=== PATIENT | female | born 1945 | race Hispanic/Latino ===

== ENCOUNTER 2017-02-09 15:41 | Inpatient (IN) | payer MEDICARE, OTHER ==
[2017-02-09] MEDS ORDERED: DUONEB 0.5 MG-3 MG/3 ML SOLN IH ONE ×2 (16:43→16:52)
[2017-02-09] MEDS ORDERED: ATROVENT IH ONE (17:06)
[2017-02-09] MEDS ORDERED: PROVENTIL IH ONE (17:06)
[2017-02-09] MEDS ORDERED: MAGNESIUM SULFATE 2GM/50ML 2 GM/50 ML BAG IV ONE (17:06)
[2017-02-09] MEDS ORDERED: ROCEPHIN/NS 1 GM/50 ML 1 GM/50 ML BAG IV ONE (17:06)
[2017-02-09] MEDS ORDERED: ZITHROMAX 500 MG in NACL 0.9% 250ML 250 ML IV ONE (17:07)
[2017-02-09] MEDS ORDERED: NACL 0.9% 500 ML 500 ML IV ONE (17:07)
--- NOTE | 2017-02-09 17:08 | Emergency Department Report ---
ED General Adult HPI - General Chief complaint: Dyspnea/Respdistress Stated complaint: DRS ORDERS Time Seen by Provider: 02/09/17 16:55 Source: patient, RN notes reviewed, old records reviewed Mode of arrival: Wheelchair Limitations: Physical Limitation - History of Present Illness Initial comments: Primary care Dr.: Dr. César Sanford Past medical history: COPD, on chronic home oxygen, chronic respiratory failure , hypothyroidism, stroke, atrial fibrillation, This is a 71-year-old female. She is previously unknown to me. Patient presents to the ER complaining of cough, wheezing, shortness of breath, chills. Symptoms present for the past 4-5 days. They're constant. They worse with physical exertion. It decreased with rest. Patient was seen by her primary care doctor earlier on today, had an outpatient x-ray demonstrated bilateral lower lobe pneumonia. Patient is sent to the ER for evaluation and probable admission. -: Gradual Consistency: constant Improves with: rest Worsens with: movement Associated Symptoms: cough, fever/chills, malaise, shortness of breath, weakness. denies: chest pain - Related Data Home Medications Medication Instructions Recorded Confirmed Last Taken ALBUTEROL NEB's [Proventil] 2.5 mg IH QID PRN 02/09/17 02/09/17 Unknown Amiodarone [Cordarone 200 MG TAB] 200 mg PO DAILY 02/09/17 02/09/17 Unknown Carbidopa/Levodopa 25-100 [Sinemet] 1 each PO TID 02/09/17 02/09/17 Unknown amLODIPine [Norvasc] 10 mg PO DAILY 02/09/17 02/09/17 Unknown Previous Rx's Medication Instructions Recorded Last Taken Type Donepezil [Aricept] 5 mg PO QHS #30 tablet 04/21/16 Unknown Rx Levothyroxine [Synthroid] 150 mcg PO QAM #30 tablet 04/21/16 Unknown Rx QUEtiapine [SEROquel] 25 mg PO BID #60 tablet 04/21/16 Unknown Rx Sertraline [Zoloft] 50 mg PO QDAY #30 tablet 04/21/16 Unknown Rx rOPINIRole [Requip] 1 mg PO QHS #30 tablet 04/21/16 Unknown Rx Allergies Allergy/AdvReac Type Severity Reaction Status Date / Time Sulfa (Sulfonamide Allergy Rash Verified 08/14/14 20:17 Antibiotics) ED Review of Systems ROS: Stated complaint: DRS ORDERS Other details as noted in HPI Constitutional: fever, malaise, weakness Eyes: denies: vision change ENT: denies: epistaxis Respiratory: cough, shortness of breath, SOB with exertion, SOB at rest, wheezing Cardiovascular: dyspnea on exertion Gastrointestinal: denies: vomiting Genitourinary: as per HPI Musculoskeletal: denies: arthralgia Skin: denies: lesions Neurological: weakness ED Past Medical Hx - Past Medical History Previous Medical History?: Yes Hx Hypertension: No Hx CVA: Yes (TIA 3) Hx Heart Attack/AMI: No Hx Congestive Heart Failure: Yes Hx Diabetes: No Hx Deep Vein Thrombosis: No Hx Pulmonary Embolism: No Hx GERD: No Hx Liver Disease: No Hx Renal Disease: No Hx Sickle Cell Disease: No Hx Arthritis: No Hx Headaches / Migraines: No Hx Seizures: No Hx Kidney Stones: No Hx Psychiatric Treatment: No Hx Asthma: No Hx COPD: Yes Hx Tuberculosis: No Hx Dementia: Yes Hx HIV: No Additional medical history: Atrial fibrillation (was taken off of anticoagulation secondary to GI bleeds in the past). TIA. Aortic Stenosis - Surgical History Past Surgical History?: Yes Hx Coronary Stent: No Hx Open Heart Surgery: No Hx Pacemaker: No Hx Internal Defibrillator: No Hx Cholecystectomy: No Hx Appendectomy: No Hx Breast Surgery: No Additional Surgical History: Cardiac cath - Social History Smoking Status: Never Smoker Substance Use Type: None - Medications Home Medications: Home Medications Medication Instructions Recorded Confirmed Last Taken Type Donepezil [Aricept] 5 mg PO QHS #30 tablet 04/21/16 02/09/17 Unknown Rx Levothyroxine [Synthroid] 150 mcg PO QAM #30 tablet 04/21/16 02/09/17 Unknown Rx QUEtiapine [SEROquel] 25 mg PO BID #60 tablet 04/21/16 02/09/17 Unknown Rx Sertraline [Zoloft] 50 mg PO QDAY #30 tablet 04/21/16 02/09/17 Unknown Rx rOPINIRole [Requip] 1 mg PO QHS #30 tablet 04/21/16 02/09/17 Unknown Rx ALBUTEROL NEB's [Proventil] 2.5 mg IH QID PRN 02/09/17 02/09/17 Unknown History Amiodarone [Cordarone 200 MG TAB] 200 mg PO DAILY 02/09/17 02/09/17 Unknown History Carbidopa/Levodopa 25-100 [Sinemet] 1 each PO TID 02/09/17 02/09/17 Unknown History amLODIPine [Norvasc] 10 mg PO DAILY 02/09/17 02/09/17 Unknown History ED Physical Exam - General General appearance: obese - Head Head exam: Present: atraumatic, normocephalic - Eye Eye exam: Present: normal appearance, EOMI. Absent: nystagmus - ENT ENT exam: Present: normal exam, normal orophraynx, mucous membranes moist, normal external ear exam - Neck Neck exam: Present: normal inspection, full ROM. Absent: tenderness, meningismus - Respiratory Respiratory exam: Present: respiratory distress, wheezes, rhonchi - Cardiovascular Cardiovascular Exam: Present: regular rate, normal rhythm, normal heart sounds. Absent: bradycardia, tachycardia, irregular rhythm, systolic murmur, diastolic murmur, rubs, gallop - GI/Abdominal GI/Abdominal exam: Present: soft, normal bowel sounds. Absent: distended, tenderness, guarding, rebound, rigid, pulsatile mass - Extremities Exam Extremities exam: Present: normal inspection, full ROM, normal capillary refill , pedal edema. Absent: joint swelling, calf tenderness - Back Exam Back exam: Present: normal inspection, full ROM. Absent: tenderness, CVA tenderness (R), CVA tenderness (L), muscle spasm, paraspinal tenderness, vertebral tenderness - Neurological Exam Neurological exam: Present: alert, other (Extraocular movements intact. Tongue midline. No facial droop. Facial sensation intact to light touch in the V1, V2 , V3 distribution bilaterally. 5 and 5 strength in 4 extremities.. Sensation is intact to light touch in 4 extremities.). Absent: motor sensory deficit - Psychiatric Psychiatric exam: Present: normal affect, normal mood - Skin Skin exam: Present: warm, dry, intact, normal color. Absent: rash ED Course Vital Signs 02/09/17 02/09/17 02/09/17 16:21 16:35 16:53 Temperature 98.1 F Pulse Rate 90 Pulse Rate [ 72 Anterior Bilateral Throughout] Respiratory 24 Rate Respiratory 25 H Rate [Anterior Bilateral Throughout] Blood Pressure 152/76 O2 Sat by Pulse 96 93 Oximetry 02/09/17 02/09/17 02/09/17 17:00 17:15 17:30 Temperature Pulse Rate 73 71 Pulse Rate [ 78 Anterior Bilateral Throughout] Respiratory 26 H 25 H Rate Respiratory 22 Rate [Anterior Bilateral Throughout] Blood Pressure 115/70 137/69 O2 Sat by Pulse 97 95 Oximetry 02/09/17 02/09/17 02/09/17 17:38 18:00 18:30 Temperature Pulse Rate 75 72 Pulse Rate [ 72 Anterior Bilateral Throughout] Respiratory 21 18 Rate Respiratory 25 H Rate [Anterior Bilateral Throughout] Blood Pressure 133/61 135/72 O2 Sat by Pulse 100 99 Oximetry - Reevaluation(s) Reevaluation #1: 02/09/17 17:13 Differential diagnosis: COPD exacerbation, pneumonia, chronic respiratory failure Assessment and plan: 71-year-old female with bilateral wheezing, known history of COPD, outpatient x-ray that demonstrates bilateral lower lobe pneumonia, with probable pneumonia and/or COPD exacerbation. Given his advanced age, multiple medical comorbidities, patient at very high risk for decompensation, is therefore not suitable for outpatient management. She will be given albuterol, Atrovent, steroids, magnesium, and treated empirically for community- acquired pneumonia with ceftriaxone and azithromycin. not a Tamiflu candidate , symptoms present for greater than 72 hours. Reevaluation #2: 02/09/17 18:54 Case is discussed with the Hospital physician, Dr. Moya, who accepts the patient to his service. ED Medical Decision Making - Lab Data Result diagrams: 02/09/17 17:32 02/09/17 17:32 Vital Signs 02/09/17 02/09/17 16:21 16:53 Temperature 98.1 F Pulse Rate 90 Pulse Rate [ 72 Anterior Bilateral Throughout] Respiratory 24 Rate Respiratory 25 H Rate [Anterior Bilateral Throughout] Blood Pressure 152/76 O2 Sat by Pulse 96 Oximetry - EKG Data 02/09/17 18:55 Ventricular paced, left axis deviation, 75 bpm, good capture, not consistent with STEMI, nonspecific changes when compared to prior EKG. - Radiology Data Radiology results: pending, image reviewed interpreted by me: xr chest show shyperinflated lungs, cardiomegaly, ? lll infiltrate Critical care attestation.: If time is entered above; I have spent that time in minutes in the direct care of this critically ill patient, excluding procedure time. ED Disposition Clinical Impression: Respiratory failure, Pneumonia, COPD with exacerbation Disposition: OP ADMITTED IP TO THIS HOSP Is pt being admited?: Yes Does the pt Need Aspirin: No Condition: Good Instructions: Chronic Obstructive Pulmonary Disease (ED), Bacterial Pneumonia ( ED)
--- NOTE | 2017-02-09 17:28 | Admit Criteria Form ---
Admission Criteria Documentation: COPD Clinical Indications for Admission to Inpatient Care (Place 'X' for any and all applicable criteria): Admission is indicated for ANY ONE of the following (1)(2)(3): [ X]I. Acute exacerbation by high-risk comorbidity (e.g., pneumonia, dysrhythmia, heart failure, pleural effusion, pneumothorax) or severe underlying COPD (e.g., steroid dependent) [X ]II. Inpatient admission required rather than observation care (see Chronic Obstructive Pulmonary Disease: Observation Care) because of ANY ONE of the following: [X ]a) New or pre-existing signs or symptoms of COPD (eg, dyspnea or Tachypnea at rest or with minimal activity) that persist despite outpatient and observation care treatment [ ]b) New-onset hypoxemia (room air SaO2 less than 90%, PO2 less than 60 mm Hg (8.0 kPa)) that persists despite outpatient and observation care treatment [ ]c) Worsening of pre-existing hypoxemia (eg, new or increased requirement for supplemental oxygen to maintain oxygenation at baseline level) that persists despite outpatient and observation care treatment, with oxygen treatment needs performable only in acute inpatient setting [ ]d) Hypercarbia (PCO2 greater than 40 mm Hg (5.3 kPa))-induced respiratory acidosis (pH less than 7.35) that persists despite outpatient and observation care treatment [ ]e) Supplemental oxygen or respiratory treatments for over 24 hours that are performable only in acute inpatient setting [ ]f) Chest tube placement with active evacuation (e.g., suction, drainage) (5) [ ]g) Other condition, treatment or monitoring requiring inpatient admission [ ]III. Planned invasive surgical or diagnostic procedures requiring acute- care hospitalization [ ]IV. Acute respiratory failure (e.g., uncompensated hypercarbia, severe hypoxemia) [ ]V. Severe comorbid condition (e.g., severe steroid myopathy, acute vertebral fracture) that has acutely worsened pulmonary function [ ]. Confusion state, lethargy, obtundation, stupor or coma Extended stay beyond goal length of stay may be needed for (31)(32): [ ]a ) Respiratory Failure. [ ]b) Severe or persisting hypoxemia or hypercarbia [ ]c) Severe or persistent dyspnea [ ]d) Comorbidities (e.g. chronic heart failure, atrial fibrillation with rapid response, pneumonia) [ ]e) Malnutrition The original [facility] content created by [facility] has been revised. The portions of the content which have been revised are identified through the use of italic text or in bold, and [facility] has neither reviewed nor approved the modified material. All other unmodified content is copyright [facility]. Please see references footnoted in the original [facility] edition 2016 Admission Criteria Met: Yes
[2017-02-09 17:55] LABS: Basophils % (Auto) 0.4 % (0.0-1.8); Eosinophils % (Auto) 0.4 % (0.0-4.3); Hematocrit 33.1 % (30.3-42.9); Hemoglobin 10.4 gm/dl (10.1-14.3); Mean Corpuscular HGB Conc 31 % (30-34); Mean Corpuscular Hemoglobin 29 pg (28-32); Mean Corpuscular Volume 91 fl (79-97); Platelet Count 134 K/mm3 (140-440); Red Blood Count 3.63 M/mm3 (3.65-5.03); Red Cell Distribution Width 17.1 % (13.2-15.2); White Blood Count 5.6 K/mm3 (4.5-11.0)
[2017-02-09 18:05] LABS: INR 1.04 (0.87-1.13)
[2017-02-09 18:12] LABS: BUN/Creatinine Ratio 23.75; Calcium 8.4 mg/dL (8.4-10.2); Chloride 95.2 mmol/L (98-107); Potassium 4.4 mmol/L (3.6-5.0)
[2017-02-09 22:50] LABS: ISTAT Base Excess 8; ISTAT HCO3 33.4; ISTAT PCO2 60.9 (35-45); ISTAT PH 7.347 (7.35-7.45); ISTAT PO2 99 (80-105); ISTAT SITE 3; ISTAT SO2 97; ISTAT TCO2 35
[2017-02-10] MEDS ORDERED: DULCOLAX PR PRN (00:17)
[2017-02-10] MEDS ORDERED: MILK OF MAGNESIA PO PRN (00:17)
[2017-02-10] MEDS ORDERED: PERCOCET 5/325 PO PRN (00:17)
[2017-02-10] MEDS ORDERED: TYLENOL PO PRN (00:17)
[2017-02-10] MEDS ORDERED: AMBIEN PO PRN (00:17)
[2017-02-10] MEDS ORDERED: ZOFRAN IV PRN (00:17)
[2017-02-10] MEDS ORDERED: DILAUDID IV PRN (00:17)
--- NOTE | 2017-02-10 00:17 | Event Note ---
Date: 02/09/17 See H/p in reports Copd exacerbation HTN Arrhythmias Hypothyroidism Parkinsonism
[2017-02-10] MEDS ORDERED: DUONEB 0.5 MG-3 MG/3 ML SOLN IH PRN (00:20)
[2017-02-10] MEDS ORDERED: PROVENTIL IH PRN (00:37)
[2017-02-10 01:20] LABS: Basophils % (Auto) 0.2 % (0.0-1.8); Hematocrit 32.8 % (30.3-42.9); Hemoglobin 10.3 gm/dl (10.1-14.3); Mean Corpuscular HGB Conc 31 % (30-34); Mean Corpuscular Hemoglobin 29 pg (28-32); Mean Corpuscular Volume 92 fl (79-97); Platelet Count 126 K/mm3 (140-440); Red Blood Count 3.56 M/mm3 (3.65-5.03); Red Cell Distribution Width 16.7 % (13.2-15.2); White Blood Count 4.6 K/mm3 (4.5-11.0)
[2017-02-10 01:28] LABS: BUN/Creatinine Ratio 25.33; Chloride 95.8 mmol/L (98-107); Potassium 4.1 mmol/L (3.6-5.0)
--- NOTE | 2017-02-10 02:35 | History and Physical Report ---
CHIEF COMPLAINT: Increasing respiratory distress for the last 4 days. HISTORY OF PRESENT ILLNESS: A 71-year-old male with history of COPD, hypertension, arrhythmia, comes in for increasing wheezing and shortness of breath for the last 4-5 days. Cough productive of mucoid purulent sputum. The patient sent by the primary care physician for possible bilateral lower lobe pneumonia. No fever, no chills. CURRENT MEDICATIONS: Albuterol inhaler 2 puffs q.i.d., amiodarone 200 daily, Sinemet 25/100 one tablet b.i.d., amlodipine 10 mg daily, levothyroxine 150 mcg daily, sertraline 50 mg p.o. daily, Requip 1 mg p.o. at bedtime, donepezil 5 mg p.o. at bedtime. PAST MEDICAL HISTORY: As mentioned, history is significant for cerebrovascular accident, congestive heart failure, COPD, arrhythmias, hypertension, dementia, atrial fibrillation, was taken off the anticoagulation secondary to GI bleeds in the past, TIA and aortic stenosis also. PAST SURGICAL HISTORY: Cardiac catheterization in the past. No defibrillator. SOCIAL HISTORY: Past smoker until recently. FAMILY HISTORY: Significant for hypertension. REVIEW OF SYSTEMS: Significant for anxiety, shortness of breath and wheezing and cough productive of mucoid yellow sputum. Otherwise, 14-point review of systems otherwise negative. PHYSICAL EXAMINATION: GENERAL: Elderly male, cooperative during examination. VITAL SIGNS: Temperature 98.1, pulse is 90, respirations 24, blood pressure 152/76, sats 93%. HEENT: Unremarkable. Pupils equal and reactive. NECK: Accessory muscles for respiration are prominent. CHEST: Bilateral inspiratory and expiratory rhonchi present. CARDIOVASCULAR: S1, S2 heard. No gallop, no murmur, no rub. Apical impulse in left fifth intercostal space and midclavicular line. ABDOMEN: Soft and benign. No hepatosplenomegaly. No guarding, no rigidity. Hernial orifices are normal. EXTREMITIES: Good pedal pulses. No pedal edema. CENTRAL NERVOUS SYSTEM: Alert and oriented x 4, nonfocal exam. LABORATORY DATA: Chest x-ray shows COPD, no infiltrates. EKG shows atrial fibrillation, nonspecific ST-T wave changes. Labs significant for white count of 5600. Chloride of 95.2, bicarbonate of 34, BUN and creatinine of 38 and 1.6, glucose of 113. ABG 7.347, pCO2 of 60.9, pO2 is 99. Bicarbonate is 33. Total CO2 is 35. ASSESSMENT AND PLAN: 1. Acute respiratory failure with hypercapnia. The patient will be continued on DuoNeb q. 6h. round the clock and q.3h. p.r.n., IV Solu-Medrol 60 mg q.8h. and IV Levaquin 750 mg q.8h. 2. Arrhythmias. Continue amiodarone 200 mg daily. 3. Hypertension. Continue amlodipine 10 mg daily. 4. Severe parkinsonism. Continue Sinemet 25/100 one tablet t.i.d. 5. Hypothyroidism. Continue levothyroxine 150 mcg daily. Check TSH. 6. Depression/bipolar disorder. Continue Seroquel 25 mg twice a day and sertraline once a day 7. Dementia. Continue Aricept 5 mg daily. 8. Deep venous thrombosis prophylaxis, Lovenox 40 mg subcutaneous daily. JOB# [id number] [facility]
[2017-02-10] MEDS: DUONEB 0.5 MG-3 MG/3 ML SOLN IH SCH ×4 (03:19→21:09)
[2017-02-10] MEDS: SYNTHROID PO SCH (05:27)
--- NOTE | 2017-02-10 07:37 | XRay Report ---
Portable chest: PNA The heart is being is mild vascular congestion with slight increased interstitial markings. No focal infiltrate. No effusion. Bipolar pacemaker with intact wires. The findings appear unchanged compared to April 19, 2016. Impressions: Chronic cardiac and lung disease. No acute findings noted.
[2017-02-10] MEDS ORDERED: LEVAQUIN 750MG/150ML 750 MG/150 ML BAG IV SCH (10:00)
[2017-02-10] MEDS: SINEMET PO SCH ×3 (10:00→21:30)
[2017-02-10] MEDS: LEVAQUIN 750MG/150ML 750 MG/150 ML BAG IV SCH (10:04)
[2017-02-10] MEDS: NORVASC PO SCH (11:02)
[2017-02-10] MEDS: CORDARONE PO SCH (11:02)
[2017-02-10] MEDS: ZOLOFT PO SCH (11:02)
[2017-02-10] MEDS ORDERED: PNEUMOVAX 23 IM ONE (12:00)
[2017-02-10] MEDS ORDERED: FLUARIX QUAD 2016-2017(36 MOS+) IM ONE (12:00)
--- NOTE | 2017-02-10 13:51 | Progress Note ---
Assessment and Plan Assessment and plan: Acute reparatory failure with hypercapnia COPD exacerbation Arrhythmia HTN Parkinsonism Hypothyroidism Depression/ Bipolar disorder - solumedrol, O2 support, breathing treatment, Levaquin - Continue home medications Disposition - Likely will be discharged tomorrow History Interval history: Patient was seen and evaluated this morning. Shortness of breath is getting better but still winded. Hospitalist Physical - Physical exam Narrative exam: In moderate cardiopulmonary distress. The patient appeared well nourished and normally developed. Vital signs as documented. Head exam is unremarkable. No scleral icterus . Neck is without jugular venous distension, thyromegaly, or carotid bruits. Lungs wheezing all over the chest, decrease air entry. Cardiac exam reveals regular rate and Rhythm. First and second heart sounds normal. No murmurs, rubs or gallops. Abdominal exam reveals normal bowel sounds, no masses, no organomegaly and no aortic enlargement. Extremities are nonedematous and both femoral and pedal pulses are normal. 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 No focal weakness. - Constitutional Vitals: Temp Pulse Resp BP Pulse Ox 98.5 F 72 20 171/70 97 02/10/17 13:06 02/10/17 13:06 02/10/17 13:06 02/10/17 13:06 02/10/17 13:06 Results - Labs CBC & Chem 7: 02/10/17 00:37 02/10/17 00:37 Labs: Laboratory Last Values WBC 4.6 K/mm3 (4.5-11.0) 02/10/17 00:37 RBC 3.56 M/mm3 (3.65-5.03) L 02/10/17 00:37 Hgb 10.3 gm/dl (10.1-14.3) 02/10/17 00:37 Hct 32.8 % (30.3-42.9) 02/10/17 00:37 MCV 92 fl (79-97) 02/10/17 00:37 MCH 29 pg (28-32) 02/10/17 00:37 MCHC 31 % (30-34) 02/10/17 00:37 RDW 16.7 % (13.2-15.2) H 02/10/17 00:37 Plt Count 126 K/mm3 (140-440) L 02/10/17 00:37 Lymph % (Auto) 10.9 % (13.4-35.0) L 02/10/17 00:37 Glenn % (Auto) 2.9 % (0.0-7.3) 02/10/17 00:37 Eos % (Auto) 0.0 % (0.0-4.3) 02/10/17 00:37 Baso % (Auto) 0.2 % (0.0-1.8) 02/10/17 00:37 Lymph # 0.5 K/mm3 (1.2-5.4) L 02/10/17 00:37 Glenn # 0.1 K/mm3 (0.0-0.8) 02/10/17 00:37 Eos # 0.0 K/mm3 (0.0-0.4) 02/10/17 00:37 Baso # 0.0 K/mm3 (0.0-0.1) 02/10/17 00:37 Seg Neutrophils % 86.0 % (40.0-70.0) H 02/10/17 00:37 Seg Neutrophils # 3.9 K/mm3 (1.8-7.7) 02/10/17 00:37 PT 13.5 Sec. (12.2-14.9) 02/09/17 17:32 INR 1.04 (0.87-1.13) 02/09/17 17:32 POC ABG pH 7.347 (7.35-7.45) L 02/09/17 22:41 POC ABG pCO2 60.9 (35-45) H 02/09/17 22:41 POC ABG pO2 99 (80-105) 02/09/17 22:41 POC ABG HCO3 33.4 02/09/17 22:41 POC ABG Total CO2 35 02/09/17 22:41 POC ABG O2 Sat 97 02/09/17 22:41 POC ABG Base Excess 8 02/09/17 22:41 FiO2 35 % 02/09/17 22:41 Sodium 143 mmol/L (137-145) 02/10/17 00:37 Potassium 4.1 mmol/L (3.6-5.0) 02/10/17 00:37 Chloride 95.8 mmol/L (98-107) L 02/10/17 00:37 Carbon Dioxide 32 mmol/L (22-30) H 02/10/17 00:37 Anion Gap 19 mmol/L 02/10/17 00:37 BUN 38 mg/dL (7-17) H 02/10/17 00:37 Creatinine 1.5 mg/dL (0.7-1.2) H 02/10/17 00:37 Estimated GFR 34 ml/min 02/10/17 00:37 BUN/Creatinine Ratio 25.33 % 02/10/17 00:37 Glucose 201 mg/dL (65-100) H 02/10/17 00:37 Hemoglobin A1c 4.5 % (4-6) 02/10/17 00:37 Lactic Acid 2.0 mmol/L (0.7-2.0) 02/09/17 17:32 Calcium 8.0 mg/dL (8.4-10.2) L 02/10/17 00:37 Troponin T < 0.010 ng/mL (0.00-0.029) 02/09/17 17:32
--- NOTE | 2017-02-10 19:27 | Event Note ---
Date: 02/10/17 dR. ROJAS THANK YOU FOR ASKING US TO PARTICIPATE IN THE CARE OF THIS PATIENT. THIS IIS 71 YEAR OLD FEMALE WITH HISTORY OF COPD ON HOME O2, CHRONIC RESPIRATORY FAILURE,HYPOTHYROIDISM,STROKE ,CHF,ATRIAL FIBRILLATION ADMITTED WITH SHORTNESS OF BREATH,WHEEZING,COUGH.COUGH IS NON PRODUCTIVE.PATIENT HAS HISTORY OF SMOKING IN THE PAST. 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 ALLERGIC TO SULFA DRUGS. IMMPRESSION: 1. EXACERBATION OF COPD 2. ACUTE ON CHRONIC RESPIRATORY FAILURE 3. ACUTE BRONCHITIS 4. CARDIOMEGALY, CHF 5. ATRIAL FIBRILLATION 6. H/O CVA. 7. HYPOTHYROIDISM 8 CKD PLAN; 1. O2 SUPPLEMENTATION 2 LITRES VIA NASAL CANULA. 2. ALBUTEROL/ATROVENT AEROSOL TREATMENTS Q 6 HOURS. 3. CONTINUE I/V SOLUMEDRAL. 4. CONTINUE I/V LEVAQUINE. 5. RECOMMEND LOVENOX 30 MG S/C QD.
[2017-02-10] MEDS: ROBITUSSIN PO PRN (20:02)
[2017-02-10] MEDS: ARICEPT PO SCH (21:30)
[2017-02-10] MEDS: REQUIP PO SCH (21:30)
[2017-02-11] MEDS: DUONEB 0.5 MG-3 MG/3 ML SOLN IH SCH ×4 (02:09→20:16)
[2017-02-11] MEDS: ROBITUSSIN PO PRN ×2 (02:23→21:27)
[2017-02-11] MEDS: SYNTHROID PO SCH (06:11)
[2017-02-11 06:32] LABS: Basophils % (Auto) 0.1 % (0.0-1.8); Hematocrit 33.3 % (30.3-42.9); Hemoglobin 10.5 gm/dl (10.1-14.3); Mean Corpuscular HGB Conc 32 % (30-34); Mean Corpuscular Hemoglobin 29 pg (28-32); Mean Corpuscular Volume 93 fl (79-97); Platelet Count 145 K/mm3 (140-440); Red Blood Count 3.59 M/mm3 (3.65-5.03); Red Cell Distribution Width 16.8 % (13.2-15.2); White Blood Count 3.4 K/mm3 (4.5-11.0)
[2017-02-11 06:53] LABS: Albumin 3.8 g/dL (3.9-5); Albumin/Globulin Ratio 1.2 %; BUN/Creatinine Ratio 26.92; Bilirubin,Total 0.3 mg/dL (0.1-1.2); Calcium 8.6 mg/dL (8.4-10.2); Chloride 98.9 mmol/L (98-107); Potassium 5.4 mmol/L (3.6-5.0); Total Protein 7.1 g/dL (6.3-8.2)
[2017-02-11] MEDS: SINEMET PO SCH ×3 (08:58→21:27)
[2017-02-11] MEDS: ZOLOFT PO SCH (10:43)
[2017-02-11] MEDS: NORVASC PO SCH (10:43)
[2017-02-11] MEDS: CORDARONE PO SCH (10:43)
--- NOTE | 2017-02-11 11:07 | Progress Note ---
Assessment and Plan - Patient Problems (1) COPD with exacerbation Current Visit: Yes Status: Acute Plan to address problem: - continue bronchodilators and pulmonary toilet - consider addition of LABA & ICS - continue systemic steroids - prn BIPAP - continue empiric AB's - continue suplemental oxygen to keep O2Sats > 92% (2) Acute on chronic respiratory failure with hypoxia and hypercapnia Current Visit: No Status: Acute Plan to address problem: - as above (3) Atrial fibrillation with controlled ventricular response Current Visit: No Status: Chronic Plan to address problem: - continue amiodarone Subjective Date of service: 02/11/17 Principal diagnosis: Acute COPD exacerbation Interval history: Seen and examined at bedside; 24 hour events reviewed; nursing and respiratory care staff consulted; no adverse overnight events reported to me; resting in bed ; still SOB; denies acute chest pains; No N/V/F/C Objective Vital Signs - 12hr 02/11/17 02/11/17 02/11/17 00:00 02:11 02:34 Temperature 98.1 F Pulse Rate [ 102 H 72 Anterior Bilateral Throughout] Pulse Rate [ 73 Right] Respiratory 18 Rate Respiratory 20 20 Rate [Anterior Bilateral Throughout] Blood Pressure 148/70 [Right Arm] O2 Sat by Pulse 96 Oximetry 02/11/17 02/11/17 02/11/17 04:00 08:41 08:43 Temperature 98.4 F 97.4 F L Pulse Rate [ 86 Anterior Bilateral Throughout] Pulse Rate [ 90 73 Right] Respiratory 18 20 Rate Respiratory 18 Rate [Anterior Bilateral Throughout] Blood Pressure 121/66 136/74 [Right Arm] O2 Sat by Pulse 98 97 Oximetry 02/11/17 02/11/17 08:45 08:53 Temperature Pulse Rate [ 88 Anterior Bilateral Throughout] Pulse Rate [ Right] Respiratory Rate Respiratory 18 Rate [Anterior Bilateral Throughout] Blood Pressure [Right Arm] O2 Sat by Pulse 95 Oximetry Constitutional: alert, appears uncomfortable Eyes: non-icteric ENT: oropharynx moist Neck: supple, no lymphadenopathy Effort: mildly labored Ascultation: Bilateral: diminished breath sounds, wheezes (expiratory) Cardiovascular: regular rate and rhythm Gastrointestinal: normoactive bowel sounds, soft, non-tender, non-distended Integumentary: normal Extremities: no cyanosis, no edema, pulses normal, no ischemia or petechiae Neurologic: normal mental status, non-focal exam, pupils equal and round, motor strength normal and Psychiatric: mood appropriate, affect normal CBC and BMP: 02/13/17 05:42 02/13/17 05:42 ABG, PT/INR, D-dimer: ABG POC ABG pH 7.347 (7.35-7.45) L 02/09/17 22:41 POC ABG pCO2 60.9 (35-45) H 02/09/17 22:41 POC ABG pO2 99 (80-105) 02/09/17 22:41 POC ABG HCO3 33.4 02/09/17 22:41 POC ABG Total CO2 35 02/09/17 22:41 POC ABG O2 Sat 97 02/09/17 22:41 PT/INR, D-dimer PT 13.5 Sec. (12.2-14.9) 02/09/17 17:32 INR 1.04 (0.87-1.13) 02/09/17 17:32 Abnormal lab findings: Abnormal Labs 02/09/17 02/10/17 02/10/17 22:41 00:37 00:37 WBC RBC 3.56 L RDW 16.7 H Plt Count 126 L Lymph % (Auto) 10.9 L Lymph # 0.5 L Seg Neutrophils % 86.0 H POC ABG pH 7.347 L POC ABG pCO2 60.9 H Potassium Chloride 95.8 L Carbon Dioxide 32 H BUN 38 H Creatinine 1.5 H Glucose 201 H Calcium 8.0 L ALT Albumin 02/11/17 02/11/17 05:52 05:52 WBC 3.4 L RBC 3.59 L RDW 16.8 H Plt Count Lymph % (Auto) Lymph # 0.5 L Seg Neutrophils % 79.2 H POC ABG pH POC ABG pCO2 Potassium 5.4 H D Chloride Carbon Dioxide 34 H BUN 35 H Creatinine 1.3 H Glucose 158 H Calcium ALT 6 L Albumin 3.8 L Chest x-ray: image reviewed
[2017-02-11] MEDS ORDERED: KIONEX PO ONE (16:39)
--- NOTE | 2017-02-11 16:44 | Progress Note ---
Assessment and Plan Assessment and plan: Acute reparatory failure with hypercapnia COPD exacerbation Arrhythmia HTN Parkinsonism Hypothyroidism Depression/ Bipolar disorder MARTIN - solumedrol, O2 support, breathing treatment, Levaquin - Patient is getting better but not as expected, going to do VQ scan, follow-up with the results of VQ scan - Continue home medications Disposition - Continue inpatient care History Interval history: Patient was seen and evaluated this morning. Shortness of breath is getting better but still winded and not stable for discharge. Hospitalist Physical - Physical exam Narrative exam: In moderate cardiopulmonary distress. The patient appeared well nourished and normally developed. Vital signs as documented. Head exam is unremarkable. No scleral icterus . Neck is without jugular venous distension, thyromegaly, or carotid bruits. Lungs wheezing all over the chest, decrease air entry. Cardiac exam reveals regular rate and Rhythm. First and second heart sounds normal. No murmurs, rubs or gallops. Abdominal exam reveals normal bowel sounds, no masses, no organomegaly and no aortic enlargement. Extremities are nonedematous and both femoral and pedal pulses are normal. 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 No focal weakness. - Constitutional Vitals: Temp Pulse Resp BP Pulse Ox 97.6 F 87 18 114/36 96 02/11/17 12:00 02/11/17 14:33 02/11/17 14:33 02/11/17 12:00 02/11/17 12:00 Results - Labs CBC & Chem 7: 02/11/17 05:52 02/11/17 05:52 Labs: Laboratory Last Values WBC 3.4 K/mm3 (4.5-11.0) L 02/11/17 05:52 RBC 3.59 M/mm3 (3.65-5.03) L 02/11/17 05:52 Hgb 10.5 gm/dl (10.1-14.3) 02/11/17 05:52 Hct 33.3 % (30.3-42.9) 02/11/17 05:52 MCV 93 fl (79-97) 02/11/17 05:52 MCH 29 pg (28-32) 02/11/17 05:52 MCHC 32 % (30-34) 02/11/17 05:52 RDW 16.8 % (13.2-15.2) H 02/11/17 05:52 Plt Count 145 K/mm3 (140-440) 02/11/17 05:52 Lymph % (Auto) 13.8 % (13.4-35.0) 02/11/17 05:52 [place] % (Auto) 6.9 % (0.0-7.3) 02/11/17 05:52 Eos % (Auto) 0.0 % (0.0-4.3) 02/11/17 05:52 Baso % (Auto) 0.1 % (0.0-1.8) 02/11/17 05:52 Lymph # 0.5 K/mm3 (1.2-5.4) L 02/11/17 05:52 Mobile # 0.2 K/mm3 (0.0-0.8) 02/11/17 05:52 Eos # 0.0 K/mm3 (0.0-0.4) 02/11/17 05:52 Baso # 0.0 K/mm3 (0.0-0.1) 02/11/17 05:52 Seg Neutrophils % 79.2 % (40.0-70.0) H 02/11/17 05:52 Seg Neutrophils # 2.7 K/mm3 (1.8-7.7) 02/11/17 05:52 PT 13.5 Sec. (12.2-14.9) 02/09/17 17:32 INR 1.04 (0.87-1.13) 02/09/17 17:32 POC ABG pH 7.347 (7.35-7.45) L 02/09/17 22:41 POC ABG pCO2 60.9 (35-45) H 02/09/17 22:41 POC ABG pO2 99 (80-105) 02/09/17 22:41 POC ABG HCO3 33.4 02/09/17 22:41 POC ABG Total CO2 35 02/09/17 22:41 POC ABG O2 Sat 97 02/09/17 22:41 POC ABG Base Excess 8 02/09/17 22:41 FiO2 35 % 02/09/17 22:41 Sodium 145 mmol/L (137-145) 02/11/17 05:52 Potassium 5.4 mmol/L (3.6-5.0) H D 02/11/17 05:52 Chloride 98.9 mmol/L (98-107) 02/11/17 05:52 Carbon Dioxide 34 mmol/L (22-30) H 02/11/17 05:52 Anion Gap 18 mmol/L 02/11/17 05:52 BUN 35 mg/dL (7-17) H 02/11/17 05:52 Creatinine 1.3 mg/dL (0.7-1.2) H 02/11/17 05:52 Estimated GFR 40 ml/min 02/11/17 05:52 BUN/Creatinine Ratio 26.92 % 02/11/17 05:52 Glucose 158 mg/dL (65-100) H 02/11/17 05:52 Hemoglobin A1c 4.5 % (4-6) 02/10/17 00:37 Lactic Acid 2.0 mmol/L (0.7-2.0) 02/09/17 17:32 Calcium 8.6 mg/dL (8.4-10.2) 02/11/17 05:52 Total Bilirubin 0.3 mg/dL (0.1-1.2) 02/11/17 05:52 AST 16 units/L (5-40) 02/11/17 05:52 ALT 6 units/L (7-56) L 02/11/17 05:52 Alkaline Phosphatase 73 units/L (35-129) 02/11/17 05:52 Troponin T < 0.010 ng/mL (0.00-0.029) 02/09/17 17:32 Total Protein 7.1 g/dL (6.3-8.2) 02/11/17 05:52 Albumin 3.8 g/dL (3.9-5) L 02/11/17 05:52 Albumin/Globulin Ratio 1.2 % 02/11/17 05:52 Hyperkalemia, creatinine improved
--- NOTE | 2017-02-11 19:53 | Nuclear Medicine Report ---
FINAL REPORT EXAM: NM LUNG SCAN PERF/VENT HISTORY: COPD, SOB r/o PE TECHNIQUE: 15 mCi Xenon-133 was used for ventilation. 5 mCi of technetium 99m MAA was used for perfusion. Multiple planar images were obtained. PRIORS: Chest x-ray February 11, 2017. FINDINGS: Ventilation: Poor ventilation. Grossly uniform. Perfusion: Small subsegmental perfusion defects in both lower lungs. Prominent cardiac silhouette. IMPRESSION: Based on the PIOPED study, findings represent low probability for PE.
[2017-02-11] MEDS: ARICEPT PO SCH (21:27)
[2017-02-11] MEDS: REQUIP PO SCH (21:27)
[2017-02-12] MEDS: DUONEB 0.5 MG-3 MG/3 ML SOLN IH SCH ×4 (02:22→20:21)
[2017-02-12] MEDS: SYNTHROID PO SCH (05:24)
[2017-02-12 06:00] LABS: Basophils % (Auto) 0.2 % (0.0-1.8); Hematocrit 33.3 % (30.3-42.9); Hemoglobin 10.6 gm/dl (10.1-14.3); Mean Corpuscular HGB Conc 32 % (30-34); Mean Corpuscular Hemoglobin 29 pg (28-32); Mean Corpuscular Volume 92 fl (79-97); Platelet Count 169 K/mm3 (140-440); Red Blood Count 3.63 M/mm3 (3.65-5.03); Red Cell Distribution Width 16.9 % (13.2-15.2); White Blood Count 4.8 K/mm3 (4.5-11.0)
[2017-02-12 06:18] LABS: BUN/Creatinine Ratio 29.28; Calcium 8.4 mg/dL (8.4-10.2); Chloride 99.7 mmol/L (98-107); Potassium 4.6 mmol/L (3.6-5.0)
--- NOTE | 2017-02-12 10:06 | XRay Report ---
PORTABLE CHEST INDICATION: COPD, shortness of breath. Evaluate for pulmonary embolism. COMPARISON: 02/09/2017 FINDINGS: Portable, frontal chest radiograph again demonstrates mild to moderate cardiomegaly, aortic knob calcifications, left AICD with dual-chamber leads, EKG leads and demineralized bones with few degenerative changes. Prominent markings throughout both lungs again noted without focal consolidation, pleural effusions or CHF. CONCLUSION: No acute chest process or significant interval change, as described. Thank you for the opportunity to participate in this patient's care.
[2017-02-12] MEDS: LEVAQUIN 750MG/150ML 750 MG/150 ML BAG IV SCH (10:08)
[2017-02-12] MEDS: SINEMET PO SCH ×3 (10:09→21:23)
[2017-02-12] MEDS: NORVASC PO SCH (10:09)
[2017-02-12] MEDS: CORDARONE PO SCH (10:10)
[2017-02-12] MEDS: ZOLOFT PO SCH (10:12)
--- NOTE | 2017-02-12 11:21 | Progress Note ---
Assessment and Plan - Patient Problems (1) COPD with exacerbation Current Visit: Yes Status: Acute Plan to address problem: - continue bronchodilators and pulmonary toilet - add LABA & ICS - continue systemic steroids but taper - prn BIPAP - continue empiric AB's - continue suplemental oxygen to keep O2Sats > 92% (2) Acute on chronic respiratory failure with hypoxia and hypercapnia Current Visit: No Status: Acute Plan to address problem: - as above (3) Atrial fibrillation with controlled ventricular response Current Visit: No Status: Chronic Plan to address problem: - continue amiodarone Subjective Date of service: 02/12/17 Principal diagnosis: Acute COPD exacerbation Interval history: Seen and examined at bedside; 24 hour events reviewed; nursing and respiratory care staff consulted; no adverse overnight events reported to me; still SOB; still wheezing; no new issues otherwise Objective Vital Signs - 12hr 02/12/17 02/12/17 02/12/17 02:20 02:23 02:36 Temperature 97.6 F Pulse Rate Pulse Rate [ 70 71 Anterior Bilateral Throughout] Pulse Rate [ 77 Right] Respiratory 20 Rate Respiratory 20 20 Rate [Anterior Bilateral Throughout] Blood Pressure Blood Pressure 122/62 [Right Arm] O2 Sat by Pulse 96 Oximetry 02/12/17 02/12/17 02/12/17 07:00 08:00 10:09 Temperature 97.6 F 36.6 F L Pulse Rate 70 Pulse Rate [ Anterior Bilateral Throughout] Pulse Rate [ 69 70 Right] Respiratory 20 24 Rate Respiratory Rate [Anterior Bilateral Throughout] Blood Pressure 122/62 Blood Pressure 129/67 122/62 [Right Arm] O2 Sat by Pulse 98 98 Oximetry Constitutional: no acute distress Eyes: non-icteric ENT: oropharynx moist Neck: supple, no lymphadenopathy Effort: mildly labored Ascultation: Bilateral: diminished breath sounds, wheezes (expiratory) Cardiovascular: regular rate and rhythm Gastrointestinal: normoactive bowel sounds, soft, non-tender, non-distended Integumentary: normal Extremities: no cyanosis, no edema, pulses normal, no ischemia or petechiae Neurologic: normal mental status, non-focal exam, pupils equal and round, motor strength normal and Psychiatric: mood appropriate, affect normal CBC and BMP: 02/13/17 05:42 02/13/17 05:42 ABG, PT/INR, D-dimer: ABG POC ABG pH 7.347 (7.35-7.45) L 02/09/17 22:41 POC ABG pCO2 60.9 (35-45) H 02/09/17 22:41 POC ABG pO2 99 (80-105) 02/09/17 22:41 POC ABG HCO3 33.4 02/09/17 22:41 POC ABG Total CO2 35 02/09/17 22:41 POC ABG O2 Sat 97 02/09/17 22:41 PT/INR, D-dimer PT 13.5 Sec. (12.2-14.9) 02/09/17 17:32 INR 1.04 (0.87-1.13) 02/09/17 17:32 Abnormal lab findings: Abnormal Labs 02/09/17 02/10/17 02/10/17 22:41 00:37 00:37 WBC RBC 3.56 L RDW 16.7 H Plt Count 126 L Lymph % (Auto) 10.9 L Lymph # 0.5 L Seg Neutrophils % 86.0 H POC ABG pH 7.347 L POC ABG pCO2 60.9 H Potassium Chloride 95.8 L Carbon Dioxide 32 H BUN 38 H Creatinine 1.5 H Glucose 201 H Calcium 8.0 L ALT Albumin 02/11/17 02/11/17 02/12/17 05:52 05:52 05:35 WBC 3.4 L RBC 3.59 L 3.63 L RDW 16.8 H 16.9 H Plt Count Lymph % (Auto) 7.9 L Lymph # 0.5 L 0.4 L Seg Neutrophils % 79.2 H 89.1 H POC ABG pH POC ABG pCO2 Potassium 5.4 H D Chloride Carbon Dioxide 34 H BUN 35 H Creatinine 1.3 H Glucose 158 H Calcium ALT 6 L Albumin 3.8 L 02/12/17 05:35 WBC RBC RDW Plt Count Lymph % (Auto) Lymph # Seg Neutrophils % POC ABG pH POC ABG pCO2 Potassium Chloride Carbon Dioxide 31 H BUN 41 H Creatinine 1.4 H Glucose 142 H Calcium ALT Albumin
--- NOTE | 2017-02-12 14:51 | Progress Note ---
Assessment and Plan Assessment and plan: Acute reparatory failure with hypercapnia COPD exacerbation Arrhythmia HTN Parkinsonism Hypothyroidism Depression/ Bipolar disorder MARTIN - solumedrol, O2 support, breathing treatment, Levaquin - Patient is getting better but not as expected, VQ scan low probability for PE - Continue home medications Disposition - Continue inpatient care History Interval history: Patient was seen and evaluated this morning. Shortness of breath is getting better but still winded and not stable for discharge. Hospitalist Physical - Physical exam Narrative exam: In moderate cardiopulmonary distress. The patient appeared well nourished and normally developed. Vital signs as documented. Head exam is unremarkable. No scleral icterus . Neck is without jugular venous distension, thyromegaly, or carotid bruits. Lungs wheezing all over the chest, decrease air entry. Cardiac exam reveals regular rate and Rhythm. First and second heart sounds normal. No murmurs, rubs or gallops. Abdominal exam reveals normal bowel sounds, no masses, no organomegaly and no aortic enlargement. Extremities are nonedematous and both femoral and pedal pulses are normal. [place]: Alert and oriented 3. No focal weakness. - Constitutional Vitals: Temp Pulse Resp BP Pulse Ox 36.7 F L 83 18 119/61 98 02/12/17 12:00 02/12/17 12:00 02/12/17 12:00 02/12/17 12:00 02/12/17 12:00 Results - Labs CBC & Chem 7: 02/12/17 05:35 02/12/17 05:35 Labs: Laboratory Last Values WBC 4.8 K/mm3 (4.5-11.0) 02/12/17 05:35 RBC 3.63 M/mm3 (3.65-5.03) L 02/12/17 05:35 Hgb 10.6 gm/dl (10.1-14.3) 02/12/17 05:35 Hct 33.3 % (30.3-42.9) 02/12/17 05:35 MCV 92 fl (79-97) 02/12/17 05:35 MCH 29 pg (28-32) 02/12/17 05:35 MCHC 32 % (30-34) 02/12/17 05:35 RDW 16.9 % (13.2-15.2) H 02/12/17 05:35 Plt Count 169 K/mm3 (140-440) 02/12/17 05:35 Lymph % (Auto) 7.9 % (13.4-35.0) L 02/12/17 05:35 [place] % (Auto) 2.8 % (0.0-7.3) 02/12/17 05:35 Eos % (Auto) 0.0 % (0.0-4.3) 02/12/17 05:35 Baso % (Auto) 0.2 % (0.0-1.8) 02/12/17 05:35 Lymph # 0.4 K/mm3 (1.2-5.4) L 02/12/17 05:35 [place] # 0.1 K/mm3 (0.0-0.8) 02/12/17 05:35 Eos # 0.0 K/mm3 (0.0-0.4) 02/12/17 05:35 Baso # 0.0 K/mm3 (0.0-0.1) 02/12/17 05:35 Seg Neutrophils % 89.1 % (40.0-70.0) H 02/12/17 05:35 Seg Neutrophils # 4.2 K/mm3 (1.8-7.7) 02/12/17 05:35 PT 13.5 Sec. (12.2-14.9) 02/09/17 17:32 INR 1.04 (0.87-1.13) 02/09/17 17:32 POC ABG pH 7.347 (7.35-7.45) L 02/09/17 22:41 POC ABG pCO2 60.9 (35-45) H 02/09/17 22:41 POC ABG pO2 99 (80-105) 02/09/17 22:41 POC ABG HCO3 33.4 02/09/17 22:41 POC ABG Total CO2 35 02/09/17 22:41 POC ABG O2 Sat 97 02/09/17 22:41 POC ABG Base Excess 8 02/09/17 22:41 FiO2 35 % 02/09/17 22:41 Sodium 144 mmol/L (137-145) 02/12/17 05:35 Potassium 4.6 mmol/L (3.6-5.0) 02/12/17 05:35 Chloride 99.7 mmol/L (98-107) 02/12/17 05:35 Carbon Dioxide 31 mmol/L (22-30) H 02/12/17 05:35 Anion Gap 18 mmol/L 02/12/17 05:35 BUN 41 mg/dL (7-17) H 02/12/17 05:35 Creatinine 1.4 mg/dL (0.7-1.2) H 02/12/17 05:35 Estimated GFR 37 ml/min 02/12/17 05:35 BUN/Creatinine Ratio 29.28 % 02/12/17 05:35 Glucose 142 mg/dL (65-100) H 02/12/17 05:35 Hemoglobin A1c 4.5 % (4-6) 02/10/17 00:37 Lactic Acid 2.0 mmol/L (0.7-2.0) 02/09/17 17:32 Calcium 8.4 mg/dL (8.4-10.2) 02/12/17 05:35 Total Bilirubin 0.3 mg/dL (0.1-1.2) 02/11/17 05:52 AST 16 units/L (5-40) 02/11/17 05:52 ALT 6 units/L (7-56) L 02/11/17 05:52 Alkaline Phosphatase 73 units/L (35-129) 02/11/17 05:52 Troponin T < 0.010 ng/mL (0.00-0.029) 02/09/17 17:32 Total Protein 7.1 g/dL (6.3-8.2) 02/11/17 05:52 Albumin 3.8 g/dL (3.9-5) L 02/11/17 05:52 Albumin/Globulin Ratio 1.2 % 02/11/17 05:52 - Imaging and Cardiology Imaging and Cardiology: VQ scan negative
--- NOTE | 2017-02-12 15:50 | Consultation ---
History of Present Illness Consult date: 02/12/17 Consult reason: atrial fibrillation History of present illness: This is a 71yr old woman who is admitted with COPD exacerbation. She has a cardiac history of chronic atrial fibrillation. There is also a indwelling pacemaker in situ. Patient reports she is no longer on oral anticoagulation due to prior GI bleed while on warfarin. Patient is usually followed by [facility] and reports her Afib is management with low dose aspirin and amiodarone. She has had recent cardiac workup at [facility] including invasive cardiac evaluation April 2016, that reports normal coronaries. Her left ventricular ejection fraction was not measured at that time. Cardiac consultation requested for atrial fibrillation. Her presenting ECG ventricular paced rhythm with an underlying atrial fibrillation. At this time, she has no cardiac symptoms, no chest pain and no palpitations. Still with some shortness of breath and active wheezing. No distress noted. Medications and Allergies Allergies Allergy/AdvReac Type Severity Reaction Status Date / Time Sulfa (Sulfonamide Allergy Rash Verified 08/14/14 20:17 Antibiotics) Home Medications Medication Instructions Recorded Confirmed Last Taken Type Donepezil [Aricept] 5 mg PO QHS #30 tablet 04/21/16 02/09/17 Unknown Rx Levothyroxine [Synthroid] 150 mcg PO QAM #30 tablet 04/21/16 02/09/17 Unknown Rx QUEtiapine [SEROquel] 25 mg PO BID #60 tablet 04/21/16 02/09/17 Unknown Rx Sertraline [Zoloft] 50 mg PO QDAY #30 tablet 04/21/16 02/09/17 Unknown Rx rOPINIRole [Requip] 1 mg PO QHS #30 tablet 04/21/16 02/09/17 Unknown Rx ALBUTEROL NEB's [Proventil] 2.5 mg IH QID PRN 02/09/17 02/09/17 Unknown History Amiodarone [Cordarone 200 MG TAB] 200 mg PO DAILY 02/09/17 02/09/17 Unknown History Carbidopa/Levodopa 25-100 [Sinemet] 1 each PO TID 02/09/17 02/09/17 Unknown History amLODIPine [Norvasc] 10 mg PO DAILY 02/09/17 02/09/17 Unknown History Active Meds: Active Medications Acetaminophen (Tylenol) 650 mg PO Q4H PRN PRN Reason: Pain MILD(1-3)/Fever >100.5/POWERS Albuterol (Proventil) 2.5 mg IH Q3HRT PRN PRN Reason: Wheezing Albuterol/Ipratropium (Duoneb 0.5 Mg-3 Mg/3 Ml Soln) 1 ampul IH Q6HRT [facility] Last Admin: 02/12/17 13:59 Dose: 1 ampul Amiodarone HCl (Cordarone) 200 mg PO DAILY [facility] Last Admin: 02/12/17 10:10 Dose: 200 mg Amlodipine Besylate (Norvasc) 10 mg PO DAILY [facility] Last Admin: 02/12/17 10:09 Dose: 10 mg Bisacodyl (Dulcolax) 10 mg CO QDAY PRN PRN Reason: Constipation unrelieved by MOM Carbidopa/Levodopa (Sinemet) 1 each PO TID [facility] Last Admin: 02/12/17 10:09 Dose: 1 each Donepezil HCl (Aricept) 5 mg PO QHS [facility] Last Admin: 02/11/17 21:27 Dose: 5 mg Guaifenesin (Robitussin) 200 mg PO Q4H PRN PRN Reason: Cough Last Admin: 02/11/17 21:27 Dose: 200 mg Hydromorphone HCl (Dilaudid) 0.5 mg IV Q3H PRN PRN Reason: Pain , Severe (7-10) Levofloxacin/Dextrose (Levaquin 750mg/150ml) 750 mg in 150 mls @ 100 mls/hr IV Q48HR [facility] PRN Reason: Protocol Last Admin: 02/12/17 10:08 Dose: 100 mls/hr Levothyroxine Sodium (Synthroid) 150 mcg PO QAM@0600 [facility] Last Admin: 02/12/17 05:24 Dose: 150 mcg Magnesium Hydroxide (Milk Of Magnesia) 30 ml PO Q4H PRN PRN Reason: Constipation Methylprednisolone Sodium Succinate (Solu-Medrol) 80 mg IV Q8H [facility] Last Admin: 02/12/17 10:16 Dose: 80 mg Ondansetron HCl (Zofran) 4 mg IV Q8H PRN PRN Reason: N/V unrelieved by Reglan Oxycodone/Acetaminophen (Percocet 5/325) 1 tab PO Q6H PRN PRN Reason: Pain, Moderate (4-6) Quetiapine Fumarate (Seroquel) 25 mg PO BID [facility] Last Admin: 02/12/17 10:11 Dose: 25 mg Ropinirole HCl (Requip) 1 mg PO QHS [facility] Last Admin: 02/11/17 21:27 Dose: 1 mg Sertraline HCl (Zoloft) 50 mg PO QDAY [facility] Last Admin: 02/12/17 10:12 Dose: 50 mg Zolpidem Tartrate (Ambien) 5 mg PO QHS PRN PRN Reason: Insomnia Physical Examination Vital Signs Temp Pulse Resp BP Pulse Ox 98.1 F 90 24 152/76 96 02/09/17 16:21 02/09/17 16:21 02/09/17 16:21 02/09/17 16:21 02/09/17 16:21 General appearance: no acute distress HEENT: Positive: PERRL Neck: Positive: trachea midline Cardiac: Positive: Other (paced) Lungs: Positive: Wheezes Results 02/12/17 05:35 02/12/17 05:35 CBC 02/12/17 Range/Units 05:35 WBC 4.8 (4.5-11.0) K/mm3 RBC 3.63 L (3.65-5.03) M/mm3 Hgb 10.6 (10.1-14.3) gm/dl Hct 33.3 (30.3-42.9) % Plt Count 169 (140-440) K/mm3 Lymph # 0.4 L (1.2-5.4) K/mm3 [place] # 0.1 (0.0-0.8) K/mm3 Eos # 0.0 (0.0-0.4) K/mm3 Baso # 0.0 (0.0-0.1) K/mm3 Comprehensive Metabolic Panel 02/12/17 Range/Units 05:35 Sodium 144 (137-145) mmol/L Potassium 4.6 (3.6-5.0) mmol/L Chloride 99.7 (98-107) mmol/L Carbon Dioxide 31 H (22-30) mmol/L BUN 41 H (7-17) mg/dL Creatinine 1.4 H (0.7-1.2) mg/dL Glucose 142 H (65-100) mg/dL Calcium 8.4 (8.4-10.2) mg/dL Assessment and Plan - Patient Problems (1) Atrial fibrillation with controlled ventricular response Current Visit: No Status: Chronic Plan to address problem: patient considered no longer a candidate for oral anticoagulation due to prior GI bleed while on warfarin.
[2017-02-12] MEDS: ARICEPT PO SCH (21:23)
[2017-02-12] MEDS: REQUIP PO SCH (21:23)
[2017-02-13] MEDS: DUONEB 0.5 MG-3 MG/3 ML SOLN IH SCH ×4 (01:39→20:26)
[2017-02-13] MEDS: SYNTHROID PO SCH (06:01)
[2017-02-13 06:35] LABS: BUN/Creatinine Ratio 30.71; Calcium 8.3 mg/dL (8.4-10.2); Chloride 98.1 mmol/L (98-107); Potassium 4.3 mmol/L (3.6-5.0)
[2017-02-13 06:37] LABS: Hematocrit 33.1 % (30.3-42.9); Hemoglobin 10.6 gm/dl (10.1-14.3); Mean Corpuscular HGB Conc 32 % (30-34); Mean Corpuscular Hemoglobin 29 pg (28-32); Mean Corpuscular Volume 91 fl (79-97); Platelet Count 185 K/mm3 (140-440); Red Blood Count 3.64 M/mm3 (3.65-5.03); Red Cell Distribution Width 16.8 % (13.2-15.2); White Blood Count 5.9 K/mm3 (4.5-11.0)
[2017-02-13 07:46] LABS: Anisocytosis 1+; Basophils % (Manual) 0 % (0.0-1.8); Blastocytes % (Manual) 0 %; Diff Status Complete; Eosinophils % (Manual) 0 % (0.0-4.3); Hypochromasia 1+
[2017-02-13] MEDS: SINEMET PO SCH ×3 (08:52→21:48)
[2017-02-13] MEDS: CORDARONE PO SCH (09:01)
[2017-02-13] MEDS: NORVASC PO SCH (09:01)
[2017-02-13] MEDS: ZOLOFT PO SCH (09:02)
--- NOTE | 2017-02-13 10:42 | Progress Note ---
Assessment and Plan - Patient Problems (1) COPD with exacerbation Current Visit: Yes Status: Acute Plan to address problem: - continue bronchodilators and pulmonary toilet - added LABA & ICS - continue systemic steroids but taper - prn BIPAP - continue empiric AB's - continue suplemental oxygen to keep O2Sats > 92% (2) Acute on chronic respiratory failure with hypoxia and hypercapnia Current Visit: No Status: Acute Plan to address problem: - as above (3) Atrial fibrillation with controlled ventricular response Current Visit: No Status: Chronic Plan to address problem: - continue amiodarone - cardiology evaluation ongoing Subjective Date of service: 02/13/17 Principal diagnosis: Acute COPD exacerbation Interval history: Seen and examined at bedside; 24 hour events reviewed; nursing and respiratory care staff consulted; no adverse overnight events reported to me; no new issues respiratory-tracey; tolerating BIPAP; no emesis or overt aspiration Objective Vital Signs - 12hr 02/13/17 02/13/17 02/13/17 00:07 01:39 04:00 Temperature 97.6 F 97.3 F L Pulse Rate Pulse Rate [ 71 Anterior Bilateral Throughout] Pulse Rate [ 70 70 Right] Respiratory 20 20 Rate Respiratory 21 Rate [Anterior Bilateral Throughout] Blood Pressure Blood Pressure 131/77 124/78 [Right Arm] O2 Sat by Pulse 96 96 Oximetry 02/13/17 02/13/17 02/13/17 08:27 08:37 09:01 Temperature Pulse Rate 70 Pulse Rate [ 71 70 Anterior Bilateral Throughout] Pulse Rate [ Right] Respiratory Rate Respiratory 18 20 Rate [Anterior Bilateral Throughout] Blood Pressure 159/74 Blood Pressure [Right Arm] O2 Sat by Pulse 97 Oximetry 02/13/17 09:08 Temperature 97.9 F Pulse Rate Pulse Rate [ Anterior Bilateral Throughout] Pulse Rate [ 70 Right] Respiratory 20 Rate Respiratory Rate [Anterior Bilateral Throughout] Blood Pressure Blood Pressure 159/74 [Right Arm] O2 Sat by Pulse 97 Oximetry Constitutional: no acute distress Eyes: non-icteric ENT: oropharynx moist Neck: supple, no lymphadenopathy Effort: mildly labored Ascultation: Bilateral: diminished breath sounds, wheezes (expiratory; scant) Cardiovascular: irregular rhythm Gastrointestinal: normoactive bowel sounds, soft, non-tender, non-distended Integumentary: normal Extremities: no cyanosis, no edema, pulses normal, no ischemia or petechiae Neurologic: normal mental status, non-focal exam, pupils equal and round, motor strength normal and Psychiatric: mood appropriate, affect normal CBC and BMP: 02/14/17 05:09 02/14/17 05:09 ABG, PT/INR, D-dimer: ABG POC ABG pH 7.347 (7.35-7.45) L 02/09/17 22:41 POC ABG pCO2 60.9 (35-45) H 02/09/17 22:41 POC ABG pO2 99 (80-105) 02/09/17 22:41 POC ABG HCO3 33.4 02/09/17 22:41 POC ABG Total CO2 35 02/09/17 22:41 POC ABG O2 Sat 97 02/09/17 22:41 PT/INR, D-dimer PT 13.5 Sec. (12.2-14.9) 02/09/17 17:32 INR 1.04 (0.87-1.13) 02/09/17 17:32 Abnormal lab findings: Abnormal Labs 02/09/17 02/10/17 02/10/17 22:41 00:37 00:37 WBC RBC 3.56 L RDW 16.7 H Plt Count 126 L Lymph % (Auto) 10.9 L Lymph # 0.5 L Seg Neutrophils % 86.0 H Seg Neuts % (Manual) Lymphocytes % (Manual) Lymphocytes # (Manual) POC ABG pH 7.347 L POC ABG pCO2 60.9 H Potassium Chloride 95.8 L Carbon Dioxide 32 H BUN 38 H Creatinine 1.5 H Glucose 201 H Calcium 8.0 L ALT Albumin 02/11/17 02/11/17 02/12/17 05:52 05:52 05:35 WBC 3.4 L RBC 3.59 L 3.63 L RDW 16.8 H 16.9 H Plt Count Lymph % (Auto) 7.9 L Lymph # 0.5 L 0.4 L Seg Neutrophils % 79.2 H 89.1 H Seg Neuts % (Manual) Lymphocytes % (Manual) Lymphocytes # (Manual) POC ABG pH POC ABG pCO2 Potassium 5.4 H D Chloride Carbon Dioxide 34 H BUN 35 H Creatinine 1.3 H Glucose 158 H Calcium ALT 6 L Albumin 3.8 L 02/12/17 02/13/17 02/13/17 05:35 05:42 05:42 WBC RBC 3.64 L RDW 16.8 H Plt Count Lymph % (Auto) Lymph # Seg Neutrophils % Seg Neuts % (Manual) 89.0 H Lymphocytes % (Manual) 4.0 L Lymphocytes # (Manual) 0.2 L POC ABG pH POC ABG pCO2 Potassium Chloride Carbon Dioxide 31 H 32 H BUN 41 H 43 H Creatinine 1.4 H 1.4 H Glucose 142 H 157 H Calcium 8.3 L ALT Albumin
[2017-02-13] MEDS: PULMICORT IH SCH ×2 (12:17→20:27)
[2017-02-13] MEDS: BROVANA NEBU IH SCH ×2 (12:18→20:26)
--- NOTE | 2017-02-13 14:15 | Progress Note ---
Assessment and Plan - Patient Problems (1) Atrial fibrillation Current Visit: Yes Status: Acute Qualifiers: Atrial fibrillation type: A Plan to address problem: Atrial fibrillation is chronic, patient has been determined previously to be a high risk for oral anticoagulation therapy. We will therefore continue to optimize rate control. Increase ventricular rate at this time is likely related to COPD exacerbation and bronchodilator treatments. Subjective Date of service: 02/13/17 Principal diagnosis: Acute COPD exacerbation Interval history: Patient is comfortable, no new cardiac complaints. Objective Vital Signs Temp Pulse Pulse Pulse Resp Resp BP 02/13/17 12:00 98.0 F 73 20 02/13/17 09:08 97.9 F 70 20 02/13/17 09:01 70 159/74 02/13/17 08:37 70 20 02/13/17 08:27 71 18 02/13/17 04:00 97.3 F L 70 20 02/13/17 01:39 71 21 02/13/17 00:07 97.6 F 70 20 02/12/17 22:00 71 18 02/12/17 21:17 98.3 F 69 22 02/12/17 20:36 73 18 02/12/17 20:23 02/12/17 20:21 71 18 02/12/17 16:00 36.9 F L 73 12 BP Pulse Ox 02/13/17 12:00 141/37 96 02/13/17 09:08 159/74 97 02/13/17 09:01 02/13/17 08:37 02/13/17 08:27 97 02/13/17 04:00 124/78 96 02/13/17 01:39 02/13/17 00:07 131/77 96 02/12/17 22:00 96 02/12/17 21:17 112/54 96 02/12/17 20:36 02/12/17 20:23 97 02/12/17 20:21 02/12/17 16:00 123/63 95 - Physical Examination General: No Apparent Distress HEENT: Positive: PERRL Neck: Positive: trachea midline Cardiac: Positive: irregularly irregular Lungs: Positive: Decreased Breath Sounds Neuro: Positive: Grossly Intact Abdomen: Positive: Soft Skin: Positive: Clear Extremities: Absent: edema - Labs and Meds CBC 02/13/17 Range/Units 05:42 WBC 5.9 (4.5-11.0) K/mm3 RBC 3.64 L (3.65-5.03) M/mm3 Hgb 10.6 (10.1-14.3) gm/dl Hct 33.1 (30.3-42.9) % Plt Count 185 (140-440) K/mm3 Comprehensive Metabolic Panel 02/13/17 Range/Units 05:42 Sodium 144 (137-145) mmol/L Potassium 4.3 (3.6-5.0) mmol/L Chloride 98.1 (98-107) mmol/L Carbon Dioxide 32 H (22-30) mmol/L BUN 43 H (7-17) mg/dL Creatinine 1.4 H (0.7-1.2) mg/dL Glucose 157 H (65-100) mg/dL Calcium 8.3 L (8.4-10.2) mg/dL
[2017-02-13] MEDS ORDERED: LASIX IV ONE (16:29)
--- NOTE | 2017-02-13 16:33 | Progress Note ---
Assessment and Plan Assessment and plan: Acute reparatory failure with hypercapnia COPD exacerbation Arrhythmia HTN Parkinsonism Hypothyroidism Depression/ Bipolar disorder MARTIN - solumedrol, O2 support, breathing treatment, Levaquin, cough syrup - Patient looks volume overloaded and will give her a dose of furosemide - VQ scan low probability for PE - Continue home medications Disposition - Continue inpatient care History Interval history: Patient was seen and evaluated this morning. Shortness of breath is getting better but still she complains Cough. Hospitalist Physical - Physical exam Narrative exam: In moderate cardiopulmonary distress. The patient appeared well nourished and normally developed. Vital signs as documented. Head exam is unremarkable. No scleral icterus . Neck is without jugular venous distension, thyromegaly, or carotid bruits. Lungs scattered wheezing. Cardiac exam reveals irregularly irregular heart rate. Abdominal exam reveals normal bowel sounds, no masses, no organomegaly and no aortic enlargement. Extremities mild bilateral pedal edema. IMPOSER: Alert and oriented 3. No focal weakness. - Constitutional Vitals: Temp Pulse Resp BP Pulse Ox 98.0 F 76 18 141/37 96 02/13/17 12:00 02/13/17 12:28 02/13/17 12:28 02/13/17 12:00 02/13/17 12:00 General appearance: Present: no acute distress Results - Labs CBC & Chem 7: 02/13/17 05:42 02/13/17 05:42 Labs: Laboratory Last Values WBC 5.9 K/mm3 (4.5-11.0) 02/13/17 05:42 RBC 3.64 M/mm3 (3.65-5.03) L 02/13/17 05:42 Hgb 10.6 gm/dl (10.1-14.3) 02/13/17 05:42 Hct 33.1 % (30.3-42.9) 02/13/17 05:42 MCV 91 fl (79-97) 02/13/17 05:42 MCH 29 pg (28-32) 02/13/17 05:42 MCHC 32 % (30-34) 02/13/17 05:42 RDW 16.8 % (13.2-15.2) H 02/13/17 05:42 Plt Count 185 K/mm3 (140-440) 02/13/17 05:42 Lymph % (Auto) 7.9 % (13.4-35.0) L 02/12/17 05:35 [place] % (Auto) 2.8 % (0.0-7.3) 02/12/17 05:35 Eos % (Auto) 0.0 % (0.0-4.3) 02/12/17 05:35 Baso % (Auto) 0.2 % (0.0-1.8) 02/12/17 05:35 Lymph # 0.4 K/mm3 (1.2-5.4) L 02/12/17 05:35 [place] # 0.1 K/mm3 (0.0-0.8) 02/12/17 05:35 Eos # 0.0 K/mm3 (0.0-0.4) 02/12/17 05:35 Baso # 0.0 K/mm3 (0.0-0.1) 02/12/17 05:35 Add Manual Diff Complete 02/13/17 05:42 Total Counted 100 02/13/17 05:42 Seg Neutrophils % Health Analyst 02/13/17 05:42 Seg Neuts % (Manual) 89.0 % (40.0-70.0) H 02/13/17 05:42 Band Neutrophils % 6.0 % 02/13/17 05:42 Lymphocytes % (Manual) 4.0 % (13.4-35.0) L 02/13/17 05:42 Reactive Lymphs % (Man) 0 % 02/13/17 05:42 Monocytes % (Manual) 1.0 % (0.0-7.3) 02/13/17 05:42 Eosinophils % (Manual) 0 % (0.0-4.3) 02/13/17 05:42 Basophils % (Manual) 0 % (0.0-1.8) 02/13/17 05:42 Metamyelocytes % 0 % 02/13/17 05:42 Myelocytes % 0 % 02/13/17 05:42 Promyelocytes % 0 % 02/13/17 05:42 Blast Cells % 0 % 02/13/17 05:42 Nucleated RBC % Not Reportable 02/13/17 05:42 Seg Neutrophils # 4.2 K/mm3 (1.8-7.7) 02/12/17 05:35 Seg Neutrophils # Man 5.3 K/mm3 (1.8-7.7) 02/13/17 05:42 Band Neutrophils # 0.4 K/mm3 02/13/17 05:42 Lymphocytes # (Manual) 0.2 K/mm3 (1.2-5.4) L 02/13/17 05:42 Abs React Lymphs (Man) 0.0 K/mm3 02/13/17 05:42 Monocytes # (Manual) 0.1 K/mm3 (0.0-0.8) 02/13/17 05:42 Eosinophils # (Manual) 0.0 K/mm3 (0.0-0.4) 02/13/17 05:42 Basophils # (Manual) 0.0 K/mm3 (0.0-0.1) 02/13/17 05:42 Metamyelocytes # 0.0 K/mm3 02/13/17 05:42 Myelocytes # 0.0 K/mm3 02/13/17 05:42 Promyelocytes # 0.0 K/mm3 02/13/17 05:42 Blast Cells # 0.0 K/mm3 02/13/17 05:42 WBC Morphology Not Reportable 02/13/17 05:42 Hypersegmented Neuts Not Reportable 02/13/17 05:42 Hyposegmented Neuts Not Reportable 02/13/17 05:42 Hypogranular Neuts Not Reportable 02/13/17 05:42 Smudge Cells Not Reportable 02/13/17 05:42 Toxic Granulation Not Reportable 02/13/17 05:42 Toxic Vacuolation Not Reportable 02/13/17 05:42 Dohle Bodies Not Reportable 02/13/17 05:42 Pelger-Huet Anomaly Not Reportable 02/13/17 05:42 Dorene Rods Not Reportable 02/13/17 05:42 Platelet Estimate Appears normal 02/13/17 05:42 Clumped Platelets Not Reportable 02/13/17 05:42 Plt Clumps, EDTA Not Reportable 02/13/17 05:42 Large Platelets Not Reportable 02/13/17 05:42 Giant Platelets Not Reportable 02/13/17 05:42 Platelet Satelliting Not Reportable 02/13/17 05:42 Plt Morphology Comment Not Reportable 02/13/17 05:42 RBC Morphology Not Reportable 02/13/17 05:42 Dimorphic RBCs Not Reportable 02/13/17 05:42 Polychromasia Not Reportable 02/13/17 05:42 Hypochromasia 1+ 02/13/17 05:42 Poikilocytosis Not Reportable 02/13/17 05:42 Anisocytosis 1+ 02/13/17 05:42 Microcytosis Not Reportable 02/13/17 05:42 Macrocytosis Not Reportable 02/13/17 05:42 Spherocytes Not Reportable 02/13/17 05:42 Pappenheimer Bodies Not Reportable 02/13/17 05:42 Sickle Cells Not Reportable 02/13/17 05:42 Target Cells Not Reportable 02/13/17 05:42 Tear Drop Cells Not Reportable 02/13/17 05:42 Ovalocytes Not Reportable 02/13/17 05:42 Helmet Cells Not Reportable 02/13/17 05:42 Bonner-[place] Bodies Not Reportable 02/13/17 05:42 Roff Rings Not Reportable 02/13/17 05:42 Shelly Cells Not Reportable 02/13/17 05:42 Bite Cells Not Reportable 02/13/17 05:42 Crenated Cell Not Reportable 02/13/17 05:42 Elliptocytes Not Reportable 02/13/17 05:42 Acanthocytes (Spur) Not Reportable 02/13/17 05:42 Rouleaux Not Reportable 02/13/17 05:42 Hemoglobin C Crystals Not Reportable 02/13/17 05:42 Schistocytes Not Reportable 02/13/17 05:42 Malaria parasites Not Reportable 02/13/17 05:42 Brendon Bodies Not Reportable 02/13/17 05:42 Hem Pathologist Commnt No 02/13/17 05:42 PT 13.5 Sec. (12.2-14.9) 02/09/17 17:32 INR 1.04 (0.87-1.13) 02/09/17 17:32 POC ABG pH 7.347 (7.35-7.45) L 02/09/17 22:41 POC ABG pCO2 60.9 (35-45) H 02/09/17 22:41 POC ABG pO2 99 (80-105) 02/09/17 22:41 POC ABG HCO3 33.4 02/09/17 22:41 POC ABG Total CO2 35 02/09/17 22:41 POC ABG O2 Sat 97 02/09/17 22:41 POC ABG Base Excess 8 02/09/17 22:41 FiO2 35 % 02/09/17 22:41 Sodium 144 mmol/L (137-145) 02/13/17 05:42 Potassium 4.3 mmol/L (3.6-5.0) 02/13/17 05:42 Chloride 98.1 mmol/L (98-107) 02/13/17 05:42 Carbon Dioxide 32 mmol/L (22-30) H 02/13/17 05:42 Anion Gap 18 mmol/L 02/13/17 05:42 BUN 43 mg/dL (7-17) H 02/13/17 05:42 Creatinine 1.4 mg/dL (0.7-1.2) H 02/13/17 05:42 Estimated GFR 37 ml/min 02/13/17 05:42 BUN/Creatinine Ratio 30.71 % 02/13/17 05:42 Glucose 157 mg/dL (65-100) H 02/13/17 05:42 Hemoglobin A1c 4.5 % (4-6) 02/10/17 00:37 Lactic Acid 2.0 mmol/L (0.7-2.0) 02/09/17 17:32 Calcium 8.3 mg/dL (8.4-10.2) L 02/13/17 05:42 Total Bilirubin 0.3 mg/dL (0.1-1.2) 02/11/17 05:52 AST 16 units/L (5-40) 02/11/17 05:52 ALT 6 units/L (7-56) L 02/11/17 05:52 Alkaline Phosphatase 73 units/L (35-129) 02/11/17 05:52 Troponin T < 0.010 ng/mL (0.00-0.029) 02/09/17 17:32 Total Protein 7.1 g/dL (6.3-8.2) 02/11/17 05:52 Albumin 3.8 g/dL (3.9-5) L 02/11/17 05:52 Albumin/Globulin Ratio 1.2 % 02/11/17 05:52
[2017-02-13] MEDS: ROBITUSSIN PO PRN ×2 (17:20→21:48)
[2017-02-13] MEDS: ARICEPT PO SCH (21:48)
[2017-02-13] MEDS: REQUIP PO SCH (21:48)
[2017-02-14] MEDS: DUONEB 0.5 MG-3 MG/3 ML SOLN IH SCH ×3 (01:26→13:33)
[2017-02-14 05:37] LABS: Hematocrit 35.2 % (30.3-42.9); Mean Corpuscular HGB Conc 31 % (30-34); Mean Corpuscular Hemoglobin 29 pg (28-32); Mean Corpuscular Volume 93 fl (79-97); Platelet Count 170 K/mm3 (140-440); Red Blood Count 3.81 M/mm3 (3.65-5.03); Red Cell Distribution Width 16.9 % (13.2-15.2); White Blood Count 5.7 K/mm3 (4.5-11.0)
[2017-02-14] MEDS: SYNTHROID PO SCH (05:46)
[2017-02-14 05:49] LABS: Calcium 8.6 mg/dL (8.4-10.2); Chloride 100.5 mmol/L (98-107)
[2017-02-14 06:17] LABS: Potassium 5.2 mmol/L (3.6-5.0)
[2017-02-14] MEDS: BROVANA NEBU IH SCH (08:12)
[2017-02-14] MEDS: PULMICORT IH SCH (08:12)
[2017-02-14] MEDS ORDERED: KIONEX PO ONE (08:47)
[2017-02-14 09:12] VITALS: BP 130/72
--- NOTE | 2017-02-14 10:11 | Discharge Summary ---
Providers - Providers Date of Admission: 02/09/17 18:54 Date of discharge: 02/14/17 Attending physician: DEYSI ROJAS MD 02/10/17 00:17 Consult to Physician [CONS] Routine Consulting Provider: GARETT IVAN Reason For Exam: copd exacerbation Place consult to:: alexa Notified:: y Phone number called:: [phone] Was contact made?: No If yes, spoke with:: renee Time called:: 12:37 02/12/17 10:26 Consult to Physician [CONS] Routine Consulting Provider: SUMMER ALFRED Reason For Exam: a-fib Place consult to:: [facility] Notified:: Shasta PETER Was contact made?: Yes Time called:: 10:30 Comment:: Sheila is aware 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 Patient also complains cough productive of mucoid, purulent sputum. Patient was sent by her primary care physician for possible pneumonia. No fever or chills. Patient was admitted to the floor and CTA was done negative for PE chest x-ray negative for pneumonia. She was treated for COPD exacerbation and patient didn' t get better and discharged home improved. Patient was also evaluated by cardiology for her A. fib and recommended to continue what currently she is taking. All patient's questions were answered at the bedside. Disposition: DISCHARGED TO HOME OR SELFCARE - Discharge Diagnoses (1) Atrial fibrillation Status: Acute Qualifiers: Atrial fibrillation type: A (2) COPD with exacerbation Status: Acute (3) Morbid obesity with BMI of 40.0-44.9, adult Status: Chronic Core Measure Documentation - Palliative Care Palliative Care/ Comfort Measures: Not Applicable - Core Measures Any of the following diagnoses?: none Exam - Physical Exam Narrative exam: In moderate cardiopulmonary distress. The patient appeared well nourished and normally developed. Vital signs as documented. Head exam is unremarkable. No scleral icterus . Neck is without jugular venous distension, thyromegaly, or carotid bruits. Lungs scattered wheezing. Cardiac exam reveals irregularly irregular heart rate. Abdominal exam reveals normal bowel sounds, no masses, no organomegaly and no aortic enlargement. Extremities mild bilateral pedal edema. 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 No focal weakness. - Constitutional Vitals: Temp Pulse Resp BP Pulse Ox 98.0 F 76 20 130/72 96 02/14/17 08:00 02/14/17 08:00 02/14/17 08:00 02/14/17 08:00 02/14/17 08:00 Plan Activity: no restrictions Diet: low fat, low cholesterol, low salt Follow up with: PRIMARY CARE,MD [Primary Care Provider] - 7 Days Prescriptions: Furosemide [Lasix TAB] 40 mg PO QDAY PRN #30 tablet PRN Reason: Wheezing guaiFENesin DM [Robitussin Dm] 10 ml PO Q4HR #1 bottle HYDROcodone/APAP 5-325 [Escanaba 5/325] 1 each PO Q6HR PRN #12 tablet PRN Reason: Pain Prednisone [predniSONE 10 mg (6-Day Pack, 21 Tabs)] 10 mg PO .TAPER #1 tab.ds.pk
[2017-02-14] MEDS ORDERED: LEVAQUIN PO SCH (11:00)
[2017-02-14 12:40] LABS: Basophils % (Manual) 0 % (0.0-1.8); Blastocytes % (Manual) 0 %; Eosinophils % (Manual) 0 % (0.0-4.3)
[2017-02-14 12:41] LABS: Diff Status Complete; Platelet Estimate Consistent w Auto
--- NOTE | 2017-02-14 12:54 | Progress Note ---
Assessment and Plan - Patient Problems (1) Atrial fibrillation Current Visit: Yes Status: Acute Qualifiers: Atrial fibrillation type: A Plan to address problem: Atrial fibrillation is chronic, patient has been determined previously to be a high risk for oral anticoagulation therapy. We will therefore continue to optimize rate control. Increase ventricular rate at this time is likely related to COPD exacerbation and bronchodilator treatments. Subjective Date of service: 02/14/17 Principal diagnosis: Acute COPD exacerbation Interval history: Patient looks and feels better, shortness of breath has improved. No new cardiac complaints. Objective Vital Signs Temp Pulse Pulse Pulse Resp Resp BP 02/14/17 08:22 71 18 02/14/17 08:12 79 18 02/14/17 08:00 98.0 F 76 20 130/72 02/14/17 05:26 98.2 F 71 18 110/57 02/14/17 01:35 72 18 02/14/17 01:26 71 18 02/14/17 00:41 97.2 F L 64 18 137/69 02/13/17 23:38 84 02/13/17 22:00 22 02/13/17 20:49 78 18 02/13/17 20:32 02/13/17 20:30 70 18 02/13/17 20:07 98.3 F 77 20 122/62 02/13/17 16:00 98.3 F 70 20 136/64 Pulse Ox 02/14/17 08:22 02/14/17 08:12 97 02/14/17 08:00 96 02/14/17 05:26 98 02/14/17 01:35 02/14/17 01:26 02/14/17 00:41 98 02/13/17 23:38 02/13/17 22:00 02/13/17 20:49 02/13/17 20:32 97 02/13/17 20:30 02/13/17 20:07 96 02/13/17 16:00 96 - Physical Examination General: No Apparent Distress HEENT: Positive: PERRL Neck: Positive: trachea midline Cardiac: Positive: irregularly irregular Lungs: Positive: Decreased Breath Sounds Neuro: Positive: Grossly Intact Abdomen: Positive: Soft Skin: Positive: Clear Extremities: Absent: edema - Labs and Meds CBC 02/14/17 Range/Units 05:09 WBC 5.7 (4.5-11.0) K/mm3 RBC 3.81 (3.65-5.03) M/mm3 Hgb 11.0 (10.1-14.3) gm/dl Hct 35.2 (30.3-42.9) % Plt Count 170 (140-440) K/mm3 Comprehensive Metabolic Panel 02/14/17 Range/Units 05:09 Sodium 145 (137-145) mmol/L Potassium 5.2 H D (3.6-5.0) mmol/L Chloride 100.5 (98-107) mmol/L Carbon Dioxide 32 H (22-30) mmol/L BUN 45 H (7-17) mg/dL Creatinine 1.5 H (0.7-1.2) mg/dL Glucose 165 H (65-100) mg/dL Calcium 8.6 (8.4-10.2) mg/dL
[2017-02-14] MEDS: ROBITUSSIN PO PRN (13:10)
[2017-02-14] MEDS: SINEMET PO SCH (13:11)
[2017-02-14] MEDS: NORVASC PO SCH (13:19)
[2017-02-14] MEDS: CORDARONE PO SCH (13:19)
[2017-02-14] MEDS: ZOLOFT PO SCH (13:20)
--- NOTE | 2017-02-14 15:33 | Progress Note ---
Assessment and Plan - Patient Problems (1) COPD with exacerbation Current Visit: Yes Status: Acute (2) Acute on chronic respiratory failure with hypoxia and hypercapnia Current Visit: No Status: Acute (3) Atrial fibrillation with controlled ventricular response Current Visit: No Status: Chronic Subjective Date of service: 02/14/17 Principal diagnosis: Acute COPD exacerbation Interval history: Seen and examined at bedside; 24 hour events reviewed; nursing and respiratory care staff consulted; no adverse overnight events reported to me; Objective Vital Signs - 12hr 02/14/17 02/14/17 02/14/17 05:26 08:00 08:12 Temperature 98.2 F 98.0 F Pulse Rate Pulse Rate [ 79 Anterior Bilateral Throughout] Pulse Rate [ 71 76 Right] Respiratory 18 20 Rate Respiratory 18 Rate [Anterior Bilateral Throughout] Blood Pressure 110/57 130/72 [Right Arm] O2 Sat by Pulse 98 96 97 Oximetry 02/14/17 02/14/17 02/14/17 08:22 13:19 13:33 Temperature Pulse Rate 88 Pulse Rate [ 71 103 H Anterior Bilateral Throughout] Pulse Rate [ Right] Respiratory Rate Respiratory 18 18 Rate [Anterior Bilateral Throughout] Blood Pressure [Right Arm] O2 Sat by Pulse Oximetry 02/14/17 13:43 Temperature Pulse Rate Pulse Rate [ 71 Anterior Bilateral Throughout] Pulse Rate [ Right] Respiratory Rate Respiratory 20 Rate [Anterior Bilateral Throughout] Blood Pressure [Right Arm] O2 Sat by Pulse Oximetry Constitutional: no acute distress Eyes: non-icteric ENT: oropharynx moist Neck: supple, no lymphadenopathy Effort: mildly labored Ascultation: Bilateral: diminished breath sounds, wheezes (expiratory) Cardiovascular: regular rate and rhythm Gastrointestinal: normoactive bowel sounds, soft, non-tender, non-distended Integumentary: normal Extremities: no cyanosis, no edema, pulses normal, no ischemia or petechiae Neurologic: normal mental status, non-focal exam, pupils equal and round, motor strength normal and Psychiatric: mood appropriate, affect normal CBC and BMP: 02/14/17 05:09 02/14/17 05:09 ABG, PT/INR, D-dimer: ABG POC ABG pH 7.347 (7.35-7.45) L 02/09/17 22:41 POC ABG pCO2 60.9 (35-45) H 02/09/17 22:41 POC ABG pO2 99 (80-105) 02/09/17 22:41 POC ABG HCO3 33.4 02/09/17 22:41 POC ABG Total CO2 35 02/09/17 22:41 POC ABG O2 Sat 97 02/09/17 22:41 PT/INR, D-dimer PT 13.5 Sec. (12.2-14.9) 02/09/17 17:32 INR 1.04 (0.87-1.13) 02/09/17 17:32 Abnormal lab findings: Abnormal Labs 02/09/17 02/10/17 02/10/17 22:41 00:37 00:37 WBC RBC 3.56 L RDW 16.7 H Plt Count 126 L Lymph % (Auto) 10.9 L Lymph # 0.5 L Seg Neutrophils % 86.0 H Seg Neuts % (Manual) Lymphocytes % (Manual) Lymphocytes # (Manual) POC ABG pH 7.347 L POC ABG pCO2 60.9 H Potassium Chloride 95.8 L Carbon Dioxide 32 H BUN 38 H Creatinine 1.5 H Glucose 201 H Calcium 8.0 L ALT Albumin 02/11/17 02/11/17 02/12/17 05:52 05:52 05:35 WBC 3.4 L RBC 3.59 L 3.63 L RDW 16.8 H 16.9 H Plt Count Lymph % (Auto) 7.9 L Lymph # 0.5 L 0.4 L Seg Neutrophils % 79.2 H 89.1 H Seg Neuts % (Manual) Lymphocytes % (Manual) Lymphocytes # (Manual) POC ABG pH POC ABG pCO2 Potassium 5.4 H D Chloride Carbon Dioxide 34 H BUN 35 H Creatinine 1.3 H Glucose 158 H Calcium ALT 6 L Albumin 3.8 L 02/12/17 02/13/17 02/13/17 05:35 05:42 05:42 WBC RBC 3.64 L RDW 16.8 H Plt Count Lymph % (Auto) Lymph # Seg Neutrophils % Seg Neuts % (Manual) 89.0 H Lymphocytes % (Manual) 4.0 L Lymphocytes # (Manual) 0.2 L POC ABG pH POC ABG pCO2 Potassium Chloride Carbon Dioxide 31 H 32 H BUN 41 H 43 H Creatinine 1.4 H 1.4 H Glucose 142 H 157 H Calcium 8.3 L ALT Albumin 02/14/17 02/14/17 05:09 05:09 WBC RBC RDW 16.9 H Plt Count Lymph % (Auto) Lymph # Seg Neutrophils % Seg Neuts % (Manual) 89.0 H Lymphocytes % (Manual) 6.0 L Lymphocytes # (Manual) 0.3 L POC ABG pH POC ABG pCO2 Potassium 5.2 H D Chloride Carbon Dioxide 32 H BUN 45 H Creatinine 1.5 H Glucose 165 H Calcium ALT Albumin
== END 2017-02-14 15:00 | disposition home or self-care (01) | DRG 189 ==
LOC: ED 15:41 → 4A 18:54
PROVIDERS: ADMIT Internal Medicine; ATTEND Internal Medicine
PROC: 4A033R1 Measurement of Arterial Saturation, Peripheral, Percutaneous Approach (ICD-10-PCS; 2017-02-09)
PROC: 3E0234Z Introduction of Serum, Toxoid and Vaccine into Muscle, Percutaneous Approach (ICD-10-PCS; principal; 2017-02-10)
DX: J96.22 Acute and chronic respiratory failure with hypercapnia (principal); J44.0 Chronic obstructive pulmonary disease with (acute) lower respiratory infection; N17.9 Acute kidney failure, unspecified; I13.0 Hypertensive heart and chronic kidney disease with heart failure and stage 1 through stage 4 chronic kidney disease, or unspecified chronic kidney disease; Z68.41 Body mass index [BMI] 40.0-44.9, adult; J44.1 Chronic obstructive pulmonary disease with (acute) exacerbation; J96.21 Acute and chronic respiratory failure with hypoxia; E03.9 Hypothyroidism, unspecified; F32.9 Major depressive disorder, single episode, unspecified; F03.90 Unspecified dementia, unspecified severity, without behavioral disturbance, psychotic disturbance, mood disturbance, and anxiety; I50.9 Heart failure, unspecified; E66.01 Morbid (severe) obesity due to excess calories; G20 Parkinson's disease; J20.9 Acute bronchitis, unspecified; N18.9 Chronic kidney disease, unspecified; I48.2 Chronic atrial fibrillation; Z95.0 Presence of cardiac pacemaker; Z82.49 Family history of ischemic heart disease and other diseases of the circulatory system; Z23 Encounter for immunization; Z86.73 Personal history of transient ischemic attack (TIA), and cerebral infarction without residual deficits; Z88.2 Allergy status to sulfonamides; Z88.8 Allergy status to other drugs, medicaments and biological substances; Z87.891 Personal history of nicotine dependence
CPT/HCPCS: 36415; 36600; 71010; 78582; 80048; 80053; 82140; 82803; 83036; 84484; 85007; 85025; 85610; 87040; 90686; 90732; 93005; 93010; 93306; 94640; 94644; 94760; 96365; 96375; A9540; A9558; J0456; J0696; J1940; J1956; J2930; J3475; J7040; J7050